=== PATIENT | female | born 1985 | race Caucasian/White ===

== ENCOUNTER 2018-01-13 09:42 | Emergency (ER) | payer OTHER ==
--- NOTE | 2018-01-13 10:10 | EDM.PDOC ---
ED HPI GENERAL MEDICAL PROBLEM - General Chief Complaint: Back Pain or Injury Stated Complaint: BACK PAIN Time Seen by Provider: 01/13/18 10:10 - History of Present Illness INITIAL COMMENTS - FREE TEXT/NARRATIVE: 32-year-old female presents to emergency room with back pain. Patient said this back pain for about 2 weeks. Pain is getting worse she woke up this morning and it was significantly worse. Patient denies really any significant trauma however she's been exercising more than normal. The patient did have an episode this morning where she was down on her knees tried to stand up and drop back down on her knees. This did not make the pain any worse she drop back down to her knees because of the pain. The patient's been using some ibuprofen that has not been helping too much today prior to today's has been helping. Patient has not had any loss of bowel or bladder control no pain down her legs. Patient denies any prior history of back problems. She's had no abdominal pain or tenderness no nausea no vomiting no burning or frequency with urination. Patient does have a history of kidney stones that stay in the kidneys to the best of her knowledge she has never passed a kidney stone. Right Lower Back Pain Score (Numeric/FACES): 8 - Related Data Allergies Allergy/AdvReac Type Severity Reaction Status Date / Time No Known Allergies Allergy Verified 01/13/18 09:49 Home Meds: Home Meds Cyclobenzaprine [Flexeril] 10 mg PO TID #15 tab 01/13/18 [Rx] Past Medical History Genitourinary History: Reports: Renal Calculus Social & Family History - Tobacco Use Smoking Status *Q: Never Smoker - Recreational Drug Use Recreational Drug Use: No ED ROS GENERAL - Review of Systems Review Of Systems: See Below Constitutional: Reports: No Symptoms Respiratory: Reports: No Symptoms Cardiovascular: Reports: No Symptoms GI/Abdominal: Reports: No Symptoms : Reports: No Symptoms Neurological: Reports: No Symptoms ED EXAM,LOWER BACK PAIN/INJURY - Physical Exam Exam: See Below Exam Limited By: No Limitations General Appearance: Alert, No Apparent Distress Head: Atraumatic, Normocephalic Neck: Normal Inspection, Supple, Non-Tender, Full Range of Motion Respiratory/Chest: No Respiratory Distress, Lungs Clear, Normal Breath Sounds Cardiovascular: Regular Rate, Rhythm, No Edema, No Murmur GI/Abdominal: Normal Bowel Sounds, Soft, Non-Tender, Other (She has some obesity otherwise normal exam). No: Distended, Guarding, Rigid, Rebound, Tender Back Exam: Normal Inspection, Paraspinal Tenderness (She has some right-sided paraspinous muscle spasm from the lower thoracic area through the lumbar area and down). No: CVA Tenderness (L), CVA Tenderness (R), Vertebral Tenderness Extremities: Other (Normal distracted straight leg raises normal) Psychiatric: Normal Affect, Normal Mood Course - Vital Signs Last Recorded V/S: Last Vital Signs Temp 36.4 C 01/13/18 09:45 Pulse 80 01/13/18 09:45 Resp 16 01/13/18 09:45 BP 125/76 01/13/18 09:45 Pulse Ox 97 01/13/18 09:45 - Orders/Labs/Meds Labs: Laboratory Tests 01/13/18 01/13/18 Range/Units 08:55 09:55 Urine Color Light yellow (Yellow) Urine Appearance Clear (Clear) Urine pH 7.0 (5.0-8.0) Ur Specific [place]rell 1.015 (1.005-1.030) Urine Protein Negative (Negative) Urine Glucose (UA) Negative (Negative) Urine Ketones Negative (Negative) Urine Occult Blood Negative (Negative) Urine Nitrite Negative (Negative) Urine Bilirubin Negative (Negative) Urine Urobilinogen 0.2 (0.2-1.0) Ur Leukocyte Esterase Negative (Negative) Urine RBC Not seen (0-5) /hpf Urine WBC Not seen (0-5) /hpf Ur Epithelial Cells 0-5 (0-5) /hpf Ur Squamous Epith Cells 0-5 (0-5) /hpf Urine Bacteria Not seen (FEW) /hpf Urine Mucus Not seen (FEW) /hpf Urine HCG, Qual Negative (NEGATIVE) - Re-Assessments/Exams Free Text/Narrative Re-Assessment/Exam: 01/13/18 10:28 Awaiting UA. Anticipate this is a functional low back pain will continue ibuprofen start her on Flexeril. 01/13/18 12:54 Normal urinalysis hCG negative we'll discharge her on Flexeril and Naprosyn Departure - Departure Time of Disposition: 12:55 Disposition: Home, Self-Care 01 Clinical Impression: Lumbosacral strain - Discharge Information Prescriptions: Cyclobenzaprine [Flexeril] 10 mg PO TID #15 tab Instructions: Lumbosacral Strain Referrals: PCP,None [Primary Care Provider] - Forms: ED Department Discharge Additional Instructions: Return to the emergency room with any questions problems worsening symptoms. Follow-up in the Hospital clinic on Sunday or for recheck. [phone]. You been started on 2 medications the first medication is cyclobenzaprine, or Flexeril, this is a muscle relaxant use it 3 times daily today and tomorrow as needed. Then take 1 nightly as needed. Allow 12 hours after using this medication before driving or returning to work. Limit lifting to 20 pounds as practical using proper lifting technique.
== END 2018-01-13 13:14 | disposition home or self-care (01) ==
LOC: JD.ED 09:42
DX: S39.012A Strain of muscle, fascia and tendon of lower back, initial encounter (principal); Z87.442 Personal history of urinary calculi; X58.XXXA Exposure to other specified factors, initial encounter; Y93.B9 Activity, other involving muscle strengthening exercises
CPT/HCPCS: 81001; 81025; 99283

== ENCOUNTER 2019-03-14 07:05 | Inpatient (IN) | payer OTHER ==
[2019-03-14] MEDS ORDERED: Ampicillin 2 GM in Sodium Chloride 0.9% 100 ML IV ONE (07:10)
[2019-03-14] MEDS ORDERED: Nalbuphine 20 MG/ML 1 ML Syringe IVPUSH PRN (07:10)
[2019-03-14] MEDS ORDERED: Sodium Chloride 0.9% 10 ML Syringe FLUSH PRN (07:10)
[2019-03-14] MEDS ORDERED: Ondansetron 4 MG/2 ML SDV IVPUSH PRN (07:10)
[2019-03-14] MEDS ORDERED: Oxytocin/Lactated Ringers 10 UNIT/1,000 ML BAG IV SCH ×2 (07:15)
[2019-03-14] MEDS: Lactated Ringers 1,000 ML IV SCH ×2 (07:41→10:48)
[2019-03-14] MEDS ORDERED: fentaNYL 100 MCG/2 ML SDV EPIDUR PRN (10:26)
[2019-03-14] MEDS ORDERED: diphenhydrAMINE 50 MG/ML SDV IVPUSH PRN (10:26)
[2019-03-14] MEDS ORDERED: ePHEDrine 50 MG/ML SDV IVPUSH PRN (10:26)
[2019-03-14] MEDS ORDERED: fentaNYL/Bupivacaine-NS 2 MCG/ML-0.125%/PF 100 ML Bag EPIDUR PRN (10:26)
--- NOTE | 2019-03-14 10:59 | PCM.PREANE ---
Preanesthetic Assessment - Anesthesia/Transfusion/Family Hx Anesthesia History: Prior Anesthesia Without Reaction Family History of Anesthesia Reaction: No Transfusion History: No Prior Transfusion(s) - Review of Systems General: Fatigue Pulmonary: No Symptoms Cardiovascular: No Symptoms Gastrointestinal: Abdominal Pain (labor) Neurological: No Symptoms Other: Reports: None - Physical Assessment Pulse: 99 O2 Sat by Pulse Oximetry: 97 Respiratory Rate: 16 Blood Pressure: 121/80 Temperature: 36.7 C Vital Signs: Last Vital Signs Temp 36.7 C 03/14/19 07:10 Pulse 99 03/14/19 07:10 Resp 16 03/14/19 07:10 BP 121/80 03/14/19 07:10 Pulse Ox 97 03/14/19 07:10 Height: 1.65 m Weight: 98.157 kg ASA Class: 2 Mental Status: Alert & Oriented x3 Airway Class: Mallampati = 1 Dentition: Reports: Normal Dentition Thyro-Mental Finger Breadths: 3 Mouth Opening Finger Breadths: 3 ROM/Head Extension: Full Lungs: Clear to Auscultation, Normal Respiratory Effort Cardiovascular: Regular Rate, Regular Rhythm - Lab Values: Laboratory Last Values WBC 9.79 K/mm3 (3.98-10.04) 03/14/19 07:26 RBC 4.31 M/mm3 (3.98-5.22) 03/14/19 07:26 Hgb 12.5 gm/L (11.2-15.7) 03/14/19 07:26 Hct 36.8 % (34.1-44.9) 03/14/19 07:26 MCV 85.4 fl (79.4-94.8) 03/14/19 07:26 MCH 29.0 pg (25.6-32.2) 03/14/19 07:26 MCHC 34.0 g/dl (32.2-35.5) 03/14/19 07:26 RDW Std Deviation 43.2 fL (36.4-46.3) 03/14/19 07:26 Plt Count 357 K/mm3 (182-369) 03/14/19 07:26 MPV 8.9 fl (9.4-12.3) L 03/14/19 07:26 Neut % (Auto) 79.4 % (34.0-71.1) H 03/14/19 07:26 Lymph % (Auto) 13.2 % (19.3-51.7) L 03/14/19 07:26 [place] % (Auto) 6.2 % (4.7-12.5) 03/14/19 07:26 Eos % (Auto) 0.5 (0.7-5.8) L 03/14/19 07:26 Baso % (Auto) 0.2 % (0.1-1.2) 03/14/19 07:26 Neut # (Auto) 7.77 K/mm3 (1.56-6.13) H 03/14/19 07:26 Lymph # (Auto) 1.29 K/mm3 (1.18-3.74) 03/14/19 07:26 [place] # (Auto) 0.61 K/mm3 (0.24-0.36) H 03/14/19 07:26 Eos # (Auto) 0.05 K/mm3 (0.04-0.36) 03/14/19 07: Baso # (Auto) 0.02 K/mm3 (0.01-0.08) 03/14/19 07:26 - Allergies Allergies/Adverse Reactions: Allergies Allergy/AdvReac Type Severity Reaction Status Date / Time latex Allergy Rash Verified 03/14/19 07:15 - Anesthesia Plan Pre-Op Medication Ordered: None - Acknowledgements Anesthesia Type Planned: Epidural Pt an Appropriate Candidate for the Planned Anesthesia: Yes Alternatives and Risks of Anesthesia Discussed w Pt/Guardian: Yes Pt/Guardian Understands and Agrees with Anesthesia Plan: Yes PreAnesthesia Questionnaire HEENT History: Reports: Allergic Rhinitis Respiratory History: Reports: Other (See Below) Other Respiratory History: cystic fibrosis carrier Gastrointestinal History: Reports: GERD Genitourinary History: Reports: Renal Calculus 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: , 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 Psychiatric History: Reports: Depression - Past Surgical History HEENT Surgical History: Reports: Oral Surgery Female Surgical History: Reports: D&C, Lithotripsy/ESWL, Other (See Below) Other Female Surgeries/Procedures: D & C 2005 - SUBSTANCE USE Smoking Status *Q: Former Smoker Tobacco Use Within Last Twelve Months: Cigarettes Recreational Drug Use History: No - HOME MEDS Home Medications: Home Meds Famotidine [Pepcid] 10 mg PO BID 03/14/19 [History] Iron 18 mg PO 03/14/19 [History] Vits #93/Iron Fum/FA [ Formula Tablet] 03/14/19 [History] - CURRENT (IN HOUSE) MEDS Current Meds: Current Medications Diphenhydramine HCl (Benadryl) 25 mg IVPUSH Q6H PRN PRN Reason: Itching Ephedrine Sulfate (Ephedrine Sulfate) 5 mg IVPUSH ASDIRECTED PRN PRN Reason: HYPOTENTSION Fentanyl (Sublimaze) 100 mcg EPIDUR Q3H PRN PRN Reason: Pain Last Admin: 03/14/19 10:52 Dose: 100 mcg Fentanyl/Bupivacaine HCl (Rjzrsfwr-Zpsgc-Ti 2 Mcg/Ml-0.125%) 100 ml EPIDUR ASDIRECTED PRN PRN Reason: Pain Last Admin: 03/14/19 10:52 Dose: 100 ml Ampicillin Sodium 1 gm/ Sodium (Chloride) 100 mls @ 200 mls/hr IV Q4H JOHN Lactated Ringer's (Ringers, Lactated) 1,000 mls @ 100 mls/hr IV ASDIRECTED JOHN Last Admin: 03/14/19 10:48 Dose: 100 mls/hr Oxytocin/Lactated Ringer's (Pitocin In Lr 10 Units/1,000 Ml) 10 unit in 1,000 mls @ 500 mls/hr IV .CONTINUOUS JOHN Oxytocin/Lactated Ringer's (Pitocin In Lr 10 Units/1,000 Ml) 10 unit in 1,000 mls @ 12 mls/hr IV TITRATE JOHN; Protocol Last Titration: 03/14/19 10:47 Dose: 8 munits/min, 48 mls/hr Lidocaine HCl (Xylocaine 1%) 10 ml INJECT ONETIME ONE Stop: 03/14/19 15:01 Nalbuphine HCl (Nubain) 10 mg IVPUSH Q2H PRN PRN Reason: pain Ondansetron HCl (Zofran) 4 mg IVPUSH Q4H PRN PRN Reason: Nausea/Vomiting Sodium Chloride (Saline Flush) 10 ml FLUSH ASDIRECTED PRN PRN Reason: Keep Vein Open Discontinued Medications Ampicillin Sodium 2 gm/ Sodium (Chloride) 100 mls @ 200 mls/hr IV ONETIME ONE Stop: 03/14/19 07:39 Last Admin: 03/14/19 07:41 Dose: 200 mls/hr
[2019-03-14] MEDS: Ampicillin 1 GM in Sodium Chloride 0.9% 100 ML IV SCH ×2 (11:29→15:34)
--- NOTE | 2019-03-14 13:01 | PCM.LDHP ---
L&D History of Present Illness - General Date of Service: 03/14/19 Admit Problem/Dx: Patient Status Order with Admit Dx/Problem 03/14/19 07:10 Patient Status [ADT] Routine Admission Diagnosis/Problem Admission Diagnosis/Problem 03/14/19 12:51 39-0/7 week intrauterine admitted for elective induction of labor Source of Information: Patient History Limitations: Reports: No Limitations - History of Present Illness Introduction:: Lindsay is a 33-year-old 3 para 1011 white female at 39-0/7 weeks gestational age with an LANI of 03/21/2019 admitted on the AM of 03/14/2019 for elective induction of labor. The patient's cervix is 2 cm, 60% effaced, soft, - 3 station, mid to posterior position. The procedure of Pitocin/artificial rupture membranes induction of labor is discussed in detail the patient. The risks, benefits, alternatives of care including allowing natural onset of labor all discussed. She appears understand, wishes to proceed. 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 Had one vaginal delivery and 1 induced termination of . Her LMP was 06/14/2019. Her is dated by this LMP but supported by 2 ultrasounds done on 09/02/2018 and 11/25/2018. 13. Cycles every 28 days. Patient was on control time conception. Please delivery includes the followin. Female infant 1 01/08/2017 at 37 weeks gestational age after 15 hours of labor? 6 lbs. 8 oz.?born in [place]. Child's name is Karli. 2. Patient's first ended on 05/15/2006-terminated electively at 8 weeks gestation age course. Patient's first visit was on 09/02/2018 at 11-3/7 weeks gestational age. She was seen on a very regular basis course the . Weight gain was from 195 pounds to 215.4 pounds 420.4 pound weight gain. Vital signs remained stable throughout the course and her fundal height growth was appropriate. She is centering patient. She desired an epidural in labor. Flu shot was given on 08/29/2018. She is group B strep positive and ampicillin will be used prophylactically in L&D. Her depression. Candler test was performed and was negative for trisomy 18, 21, 13. She has a history of kidney stone. Patient is a carrier for cystic fibrosis. She plans to bottlefeed. laboratory testing: Blood is O+ with negative amateur screen. hemoglobin is 13.1 g/dL. Platelets are 424,000. She is rubella immune. RPR is nonreactive. Hepatitis B surface antigen and HIV assays were both negative. Chlamydia and gonorrhea were both negative. Second trimester hemoglobin was 12.0 g/dL and platelets were 352,000. Group B strep screen was positive. Allergies latex which causes a rash Medications: vitamins 1 daily Past medical history: 1. Kidney stones with lithotripsy performed 2012 2. Termination of Past surgical history: 1. Elective termination of 2005 with D&C 2. Lithotripsy 2012 3. Rogers teeth extraction Family history: Patient reports that she has a carrier cystic fibrosis. is negative. Mother is alive and well. Father is alive and well. 2 half sisters are alive and well. Maternal grandfather is . Cause unknown. Maternal grandmother is alive but has history of anemia, depression and some type of skin disorder. Paternal grandfather is alive with skin cancer and prostate cancer. Paternal grandmother is alive at age 78 with depression, stomach issues and has had a history of miscarriages and a stroke. Family history is negative for cancer, presents related issues, bleeding or blood clotting problems. Social history: Patient is . Is Mahendra Moses. They live in [place], [place]. She does not use any significant loss of alcohol or drugs but has a history of smoking. Review of systems: In general patient has no complaints. Skin: Negative Lungs: No infectious symptoms or shortness of breath Cardiovascular: No chest pain or exercise intolerance Breasts: No lumps, changes in size, pain, dimpling, discharge or axillary or supraclavicular concerns. GI: Negative : Negative Musculoskeletal: Negative Neurological: Negative In general the patient is well-developed, well-nourished, pleasant female of stated age in no acute distress. Skin is warm dry without lesions. HEENT, neck and back within normal limits. Lungs are clear with good breath sounds in all lung [place]. Cardiovascular exam shows regular and rhythm without murmurs. Abdomen is gravid with last fundal height and at 39 cm. Baby in vertex presentation Genital exam-cervix is defined above. Extremities and neurological exam are grossly within normal limits. 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: , 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 Psychiatric History: Reports: Depression - Past Surgical History HEENT Surgical History: Reports: Oral Surgery Female Surgical History: Reports: D&C, Lithotripsy/ESWL, Other (See Below) Other Female Surgeries/Procedures: D & C 2005 Social & Family History - Tobacco Use Smoking Status *Q: Former Smoker Used Tobacco, but Quit: Yes Month/Year Tobacco Last Used: 2017 - Recreational Drug Use Recreational Drug Use: No H&P Review of Systems - Review of Systems: Review Of Systems: See Below L&D Exam - Exam Exam: See Below - Vital Signs Vital Signs: Last Vital Signs Temp 36.7 C 03/14/19 10:59 Pulse 99 03/14/19 10:59 Resp 16 03/14/19 10:59 BP 121/80 03/14/19 10:59 Pulse Ox 97 03/14/19 10:59 Weight: 98.157 kg - Patient Data Lab Results Last 24 hrs: Laboratory Results - last 24 hr 03/14/19 Range/Units 07:26 WBC 9.79 (3.98-10.04) K/mm3 RBC 4.31 (3.98-5.22) M/mm3 Hgb 12.5 (11.2-15.7) gm/L Hct 36.8 (34.1-44.9) % MCV 85.4 (79.4-94.8) fl MCH 29.0 (25.6-32.2) pg MCHC 34.0 (32.2-35.5) g/dl RDW Std Deviation 43.2 (36.4-46.3) fL Plt Count 357 (182-369) K/mm3 MPV 8.9 L (9.4-12.3) fl Neut % (Auto) 79.4 H (34.0-71.1) % Lymph % (Auto) 13.2 L (19.3-51.7) % [place] % (Auto) 6.2 (4.7-12.5) % Eos % (Auto) 0.5 L (0.7-5.8) Baso % (Auto) 0.2 (0.1-1.2) % Neut # (Auto) 7.77 H (1.56-6.13) K/mm3 Lymph # (Auto) 1.29 (1.18-3.74) K/mm3 [place] # (Auto) 0.61 H (0.24-0.36) K/mm3 Eos # (Auto) 0.05 (0.04-0.36) K/mm3 Baso # (Auto) 0.02 (0.01-0.08) K/mm3 Result Diagrams: 03/14/19 07:26 Problem List Initiated/Reviewed/Updated: Yes Orders Last 24hrs: Active Orders 24 hr Category Date Time Status Patient Status [ADT] Routine ADT 03/14/19 07:10 Active Activity as Tolerated [RC] PFP Care 03/14/19 07:10 Active Communication Order [RC] ASDIRECTED Care 03/14/19 07:10 Active Communication Order [RC] ROUTINE Care 03/14/19 10:26 Active Cooling Warming Measures [RC] ASDIRECTED Care 03/14/19 10:26 Active Heart Tones [RC] ASDIRECTED Care 03/14/19 07:13 Active Non Stress Test [RC] PER UNIT ROUTINE Care 03/14/19 07:10 Active Notify Provider [RC] ASDIRECTED Care 03/14/19 10:26 Active Notify Provider [RC] PFP Care 03/14/19 07:10 Active Notify Provider [RC] PRN Care 03/14/19 07:10 Active Oxygen Therapy [RC] ASDIRECTED Care 03/14/19 10:26 Active Peripheral IV Care [RC] . DIRECTED Care 03/14/19 07:13 Active Pulse Oximetry [RC] ASDIRECTED Care 03/14/19 10:26 Active Vital Signs [RC] ASDIRECTED Care 03/14/19 10:26 Active Vital Signs [RC] PER UNIT ROUTINE Care 03/14/19 07:10 Active Regular Diet [DIET] Diet 03/14/19 Breakfast Active RAPID PLASMA REAGIN,RPR [CHEM] Routine Lab 03/14/19 07:26 Received Ampicillin 1 gm Med 03/14/19 11:00 Active Sodium Chloride 0.9% [Normal Saline] 100 ml IV Q4H Lactated Ringers [Ringers, Lactated] 1,000 ml Med 03/14/19 07:15 Active IV ASDIRECTED Lidocaine 1% [Xylocaine 1%] Med 03/14/19 15:00 Once 10 ml INJECT ONETIME ONE Nalbuphine [Nubain] Med 03/14/19 07:10 Active 10 mg IVPUSH Q2H PRN Ondansetron [Zofran] Med 03/14/19 07:10 Active 4 mg IVPUSH Q4H PRN Oxytocin/Lactated Ringers [Pitocin in LR 10 Units/1,000 Med 03/14/19 07:15 Active ML] 10 unit in 1,000 ml IV .CONTINUOUS Oxytocin/Lactated Ringers [Pitocin in LR 10 Units/1,000 Med 03/14/19 07:15 Active ML] 10 unit in 1,000 ml IV TITRATE Sodium Chloride 0.9% [Saline Flush] Med 03/14/19 07:10 Active 10 ml FLUSH ASDIRECTED PRN diphenhydrAMINE [Benadryl] Med 03/14/19 10:26 Active 25 mg IVPUSH Q6H PRN ePHEDrine [ePHEDrine sulfate] Med 03/14/19 10:26 Active 5 mg IVPUSH ASDIRECTED PRN fentaNYL [Sublimaze] Med 03/14/19 10:26 Active 100 mcg EPIDUR Q3H PRN fentaNYL/Bupivacaine/NS/PF [cjycyQAI-Defsn-CK 2 MCG/ML- Med 03/14/19 10:26 Active 0.125%] 100 ml EPIDUR ASDIRECTED PRN Electronic Heart Tones Ext w TOCO [WOMSER] Oth 03/14/19 07:10 Ordered Routine Electronic Heart Tones Internal [WOMSER] Per Unit Oth 03/14/19 07:10 Ordered Routine Peripheral IV Insertion Adult [OM.PC] Routine Oth 03/14/19 07:10 Ordered Resuscitation Status Routine Resus Stat 03/14/19 07:10 Ordered Medication Orders Diphenhydramine HCl (Benadryl) 25 mg IVPUSH Q6H PRN PRN Reason: Itching Ephedrine Sulfate (Ephedrine Sulfate) 5 mg IVPUSH ASDIRECTED PRN PRN Reason: HYPOTENTSION Fentanyl (Sublimaze) 100 mcg EPIDUR Q3H PRN PRN Reason: Pain Last Admin: 03/14/19 10:52 Dose: 100 mcg Fentanyl/Bupivacaine HCl (Wvbowqqg-Wpwcm-Um 2 Mcg/Ml-0.125%) 100 ml EPIDUR ASDIRECTED PRN PRN Reason: Pain Last Admin: 03/14/19 10:52 Dose: 100 ml Ampicillin Sodium 1 gm/ Sodium (Chloride) 100 mls @ 200 mls/hr IV Q4H JOHN Last Admin: 03/14/19 11:29 Dose: 200 mls/hr Lactated Ringer's (Ringers, Lactated) 1,000 mls @ 100 mls/hr IV ASDIRECTED JOHN Last Admin: 03/14/19 10:48 Dose: 100 mls/hr Infusion: 03/14/19 10:48 Dose: 100 mls/hr Admin: 03/14/19 07:41 Dose: 100 mls/hr Oxytocin/Lactated Ringer's (Pitocin In Lr 10 Units/1,000 Ml) 10 unit in 1,000 mls @ 500 mls/hr IV .CONTINUOUS JOHN Oxytocin/Lactated Ringer's (Pitocin In Lr 10 Units/1,000 Ml) 10 unit in 1,000 mls @ 12 mls/hr IV TITRATE JOHN; Protocol Last Titration: 03/14/19 11:26 Dose: 6 munits/min, 36 mls/hr Titration: 03/14/19 10:47 Dose: 8 munits/min, 48 mls/hr Titration: 03/14/19 10:21 Dose: 9 munits/min, 54 mls/hr Titration: 03/14/19 09:28 Dose: 8 munits/min, 48 mls/hr Titration: 03/14/19 09:02 Dose: 6 munits/min, 36 mls/hr Titration: 03/14/19 08:36 Dose: 4 munits/min, 24 mls/hr Admin: 03/14/19 07:54 Dose: 2 munits/min, 12 mls/hr Lidocaine HCl (Xylocaine 1%) 10 ml INJECT ONETIME ONE Stop: 03/14/19 15:01 Nalbuphine HCl (Nubain) 10 mg IVPUSH Q2H PRN PRN Reason: pain Ondansetron HCl (Zofran) 4 mg IVPUSH Q4H PRN PRN Reason: Nausea/Vomiting Sodium Chloride (Saline Flush) 10 ml FLUSH ASDIRECTED PRN PRN Reason: Keep Vein Open Assessment/Plan Comment:: 1. 39-0/7 week intrauterine admitted for elective induction of labor 2. Group B strep positive status?candidate for ampicillin prophylaxis in labor delivery 3. Desiring epidural labor delivery 4.The patient plans to bottlefeed. 5. RPR is nonreactive. Patient has had her flu shot. Plan: 1. Pitocin/artificial rupture membranes induction of labor. Procedure, risks, benefits, alternative care discussed patient. She appears to understand and wishes to proceed 2. Epidural when necessary for pain in labor. 3. Ampicillin prophylaxis for group B strep per protocol 4. Bottle feeding. 5. RPR and CBC on admission to the hospital. ]
--- NOTE | 2019-03-14 14:07 | PCM.SN ---
- Free Text/Narrative Note: 1350 called to room to reattach epidural tubing to patient. Using sterile technique and sterile scissors, cut tubing back 5 inches and reattached to epidural line. Education provided to patient. Out of room at 1401
[2019-03-14] MEDS ORDERED: Lidocaine 1% 50 ML MDV INJECT ONE (15:00)
[2019-03-14] MEDS ORDERED: Acetaminophen 325 MG Tab PO PRN (15:34)
[2019-03-14] MEDS ORDERED: Lanolin 100% Cream 7 GM Tube TOP PRN (15:34)
[2019-03-14] MEDS ORDERED: Docusate Sodium 100 MG Cap PO PRN (15:34)
[2019-03-14] MEDS ORDERED: Benzocaine/Menthol 20%-0.5% Spray 56 GM Canister TOP PRN (15:34)
[2019-03-14] MEDS ORDERED: Witch Hazel Medicated Pads 40/Jar TOP PRN (15:34)
--- NOTE | 2019-03-14 15:37 | PCM.SN ---
- Free Text/Narrative Note: Lindsay is a 33-year-old 3 para 1011 white female at 39-0/7 weeks gestational age with an LANI of 03/21/2019 admitted on the AM of 03/14/2019 for elective induction of labor. The patient's cervix was 2 cm, 60% effaced, soft, - 3 station, mid to posterior position. The procedure of Pitocin/artificial rupture membranes induction of labor is discussed in detail the patient. The risks, benefits, alternatives of care including allowing natural onset of labor all discussed. She appears understand, wishes to proceed. After short period of Pitocin and menstruation artificial rupture membranes was completed with resultant clear amniotic fluid. IUPC was placed monitor contractions more accurately. Patient had an epidural placed for labor and analgesia. Patient made steady progress to complete cervical dilation by approximately 1450 hrs. At 1503 patient delivered a viable, beatty, female with Apgars of 9 and 9,A length of 20.25 inches, a weight of 3410 g (7 pounds 8.3 ounces) in a right occiput anterior position. She had a 8 cm long left labia majora laceration which was superficial in nature. No bleeding or hematomas were noted. Pitocin was started immediately after delivery the baby to facilitate increased uterine tone and decrease bleeding. Baby was placed on mom's abdomen. The umbilical cord was long pulsate for approximately 2 minutes at which time was clamped and then was cut by the baby's father Lawrence. Baby's name is Mu Torres. The baby was dried, nose and mouth were bulb suctioned. Umbilical cord had 3 vessels. Cord blood was obtained. The area of laceration was infiltrated with lidocaine 1 %10 mL total. Using a 3-0 Monocryl suture the area was closed with a running subcuticular stitch. The first-degree perineal laceration and outer and introital laceration were repaired with a short running suture of 3-0 Monocryl. Patient tolerated the procedure well. Placenta delivered in a [place] presentation,. Intact and complete and was discarded per patient desire. Speculum was placed on the patient's perineal area. Assessment blood loss 100 mL.
[2019-03-14] MEDS: Ibuprofen 600 MG Tab PO PRN (18:15)
[2019-03-14] MEDS ORDERED: Bupivacaine 0.25% 10 ML SDV ONE (22:00)
[2019-03-15] MEDS: Ibuprofen 600 MG Tab PO PRN ×5 (01:50→23:45)
--- NOTE | 2019-03-15 07:08 | PCM.PNPP ---
- General Info Date of Service: 03/15/19 Subjective Update: Doing well. day 1. Baby under bili lights. Functional Status: Reports: Pain Controlled - Review of Systems General: Reports: No Symptoms HEENT: Reports: No Symptoms Pulmonary: Reports: No Symptoms Cardiovascular: Reports: No Symptoms Gastrointestinal: Reports: No Symptoms Genitourinary: Reports: No Symptoms Musculoskeletal: Reports: No Symptoms Skin: Reports: No Symptoms Neurological: Reports: No Symptoms Psychiatric: Reports: No Symptoms - General Info Date of Service: 03/15/19 - Patient Data Vital Signs - Most Recent: Last Vital Signs Temp 37.0 C 03/14/19 19:47 Pulse 72 03/15/19 02:19 Resp 14 03/15/19 02:19 BP 127/74 03/15/19 02:19 Pulse Ox 97 03/15/19 02:19 Weight - Most Recent: 98.157 kg I&O - Last 24 Hours: Intake & Output 03/14/19 03/15/19 03/15/19 22:59 06:59 14:59 Intake Total 1800 Balance 1800 Lab Results - Last 24 Hours: Laboratory Results - last 24 hr 03/14/19 03/14/19 Range/Units 07:26 07:26 WBC 9.79 (3.98-10.04) K/mm3 RBC 4.31 (3.98-5.22) M/mm3 Hgb 12.5 (11.2-15.7) gm/L Hct 36.8 (34.1-44.9) % MCV 85.4 (79.4-94.8) fl MCH 29.0 (25.6-32.2) pg MCHC 34.0 (32.2-35.5) g/dl RDW Std Deviation 43.2 (36.4-46.3) fL Plt Count 357 (182-369) K/mm3 MPV 8.9 L (9.4-12.3) fl Neut % (Auto) 79.4 H (34.0-71.1) % Lymph % (Auto) 13.2 L (19.3-51.7) % [place] % (Auto) 6.2 (4.7-12.5) % Eos % (Auto) 0.5 L (0.7-5.8) Baso % (Auto) 0.2 (0.1-1.2) % Neut # (Auto) 7.77 H (1.56-6.13) K/mm3 Lymph # (Auto) 1.29 (1.18-3.74) K/mm3 [place] # (Auto) 0.61 H (0.24-0.36) K/mm3 Eos # (Auto) 0.05 (0.04-0.36) K/mm3 Baso # (Auto) 0.02 (0.01-0.08) K/mm3 RPR Non-reactive (NONREACTIVE) Med Orders - Current: Current Medications Acetaminophen (Tylenol) 650 mg PO Q4H PRN PRN Reason: mild pain or fever Benzocaine/Menthol (Dermoplast Pain Relief [place]) 0 gm TOP ASDIRECTED PRN PRN Reason: Perineal Comfort Measure Last Admin: 03/14/19 16:10 Dose: 1 applic Docusate Sodium (Colace) 100 mg PO BID PRN PRN Reason: Constipation Emollient Ointment (Lansinoh Hpa) 0 gm TOP ASDIRECTED PRN PRN Reason: Sore Nipples Ibuprofen (Motrin) 600 mg PO Q4H PRN PRN Reason: Mild pain or fever Last Admin: 03/15/19 05:34 Dose: 600 mg Prenat Multivit/[place]/Iron/Folic Ac ( Plus Iron) 1 each PO DAILY [facility] [place] (Tucks) 1 pad TOP ASDIRECTED PRN PRN Reason: Pain Last Admin: 03/14/19 16:09 Dose: 1 applic Discontinued Medications Diphenhydramine HCl (Benadryl) 25 mg IVPUSH Q6H PRN PRN Reason: Itching Ephedrine Sulfate (Ephedrine Sulfate) 5 mg IVPUSH ASDIRECTED PRN PRN Reason: HYPOTENTSION Fentanyl (Sublimaze) 100 mcg EPIDUR Q3H PRN PRN Reason: Pain Last Admin: 03/14/19 10:52 Dose: 100 mcg Fentanyl/Bupivacaine HCl (Ryjpkadk-Omvtx-Wo 2 Mcg/Ml-0.125%) 100 ml EPIDUR ASDIRECTED PRN PRN Reason: Pain Last Admin: 03/14/19 10:52 Dose: 100 ml Ampicillin Sodium 1 gm/ Sodium (Chloride) 100 mls @ 200 mls/hr IV Q4H [facility] Last Admin: 03/14/19 15:34 Dose: Not Given Ampicillin Sodium 2 gm/ Sodium (Chloride) 100 mls @ 200 mls/hr IV ONETIME ONE Stop: 03/14/19 07:39 Last Admin: 03/14/19 07:41 Dose: 200 mls/hr Lactated Ringer's (Ringers, Lactated) 1,000 mls @ 100 mls/hr IV ASDIRECTED JOHN Last Admin: 03/14/19 10:48 Dose: 100 mls/hr Oxytocin/Lactated Ringer's (Pitocin In Lr 10 Units/1,000 Ml) 10 unit in 1,000 mls @ 500 mls/hr IV .CONTINUOUS JOHN Oxytocin/Lactated Ringer's (Pitocin In Lr 10 Units/1,000 Ml) 10 unit in 1,000 mls @ 12 mls/hr IV TITRATE JOHN; Protocol Last Titration: 03/14/19 15:04 Dose: 500 mls/hr Lidocaine HCl (Xylocaine 1%) 10 ml INJECT ONETIME ONE Stop: 03/14/19 15:01 Last Admin: 03/14/19 15:09 Dose: 10 ml Nalbuphine HCl (Nubain) 10 mg IVPUSH Q2H PRN PRN Reason: pain Ondansetron HCl (Zofran) 4 mg IVPUSH Q4H PRN PRN Reason: Nausea/Vomiting Sodium Chloride (Saline Flush) 10 ml FLUSH ASDIRECTED PRN PRN Reason: Keep Vein Open - Infant Interaction Support Person: - Recovery Exam Fundal Tone: Firm Fundal Level: At Umbilicus Fundal Placement: Midline Lochia Amount: Small Lochia Color: Rubra/Red Episiotomy/Laceration: Approximated Bladder Status: Voiding Urinary Elimination: Voided - Exam General: Alert, Oriented HEENT: Pupils Equal Neck: Supple Lungs: Clear to Auscultation, Normal Respiratory Effort Cardiovascular: Regular Rate, Regular Rhythm GI/Abdominal Exam: Normal Bowel Sounds, Soft, Non-Tender, No Organomegaly, No Distention, No Abnormal Bruit, No Mass, Pelvis Stable Extremities: Normal Inspection, Normal Range of Motion, Non-Tender, No Pedal Edema, Normal Capillary Refill Neurological: No New Focal Deficit Psy/Mental Status: Alert, Normal Affect, Normal Mood - Problem List Review Problem List Initiated/Reviewed/Updated: Yes - Assessment Assessment:: Doing well. Likely home tomorrow.
[2019-03-15] MEDS ORDERED: Prenatal Multivitamin with Calcium/Folic Acid/Iron Tab PO SCH (09:00)
--- NOTE | 2019-03-16 07:02 | PCM.DCSUM1 ---
Discharge Summary - Hospital Course Brief History: Admitted for labor Diagnosis: Stroke: No - Discharge Data Discharge Date: 03/16/19 Discharge Disposition: Home, Self-Care 01 Condition: Good - Patient Summary/Data Hospital Course: Lindsay is a 33-year-old 3 para 1011 white female at 39-0/7 weeks gestational age with an LANI of 03/21/2019 admitted on the AM of 03/14/2019 for elective induction of labor. The patient's cervix was 2 cm, 60% effaced, soft, - 3 station, mid to posterior position. The procedure of Pitocin/artificial rupture membranes induction of labor is discussed in detail the patient. The risks, benefits, alternatives of care including allowing natural onset of labor all discussed. She appears understand, wishes to proceed. After short period of Pitocin and menstruation artificial rupture membranes was completed with resultant clear amniotic fluid. IUPC was placed monitor contractions more accurately. Patient had an epidural placed for labor and analgesia. Patient made steady progress to complete cervical dilation by approximately 1450 hrs. At 1503 patient delivered a viable, beatty, female with Apgars of 9 and 9,A length of 20.25 inches, a weight of 3410 g (7 pounds 8.3 ounces) in a right occiput anterior position. She had a 8 cm long left labia majora laceration which was superficial in nature. No bleeding or hematomas were noted. Pitocin was started immediately after delivery the baby to facilitate increased uterine tone and decrease bleeding. Baby was placed on mom's abdomen. The umbilical cord was long pulsate for approximately 2 minutes at which time was clamped and then was cut by the baby's father Lawrence. Baby's name is Mu Torres. The baby was dried, nose and mouth were bulb suctioned. Umbilical cord had 3 vessels. Cord blood was obtained. The area of laceration was infiltrated with lidocaine 1 %10 mL total. Using a 3-0 Monocryl suture the area was closed with a running subcuticular stitch. The first-degree perineal laceration and outer and introital laceration were repaired with a short running suture of 3-0 Monocryl. Patient tolerated the procedure well. Placenta delivered in a [place] presentation,. Intact and complete and was discarded per patient desire. Speculum was placed on the patient's perineal area. Assessment blood loss 100 mL Unremarkable course. Discharge ppd2 - Patient Instructions Diet: Usual Diet as Tolerated Activity: No Lifting Over 25 Pounds, No Strenuous Activities Activity, Other: pelvic rest Driving: May Drive Today Showering/Bathing: May Shower Notify Provider of: Fever, Increased Pain, Swelling and Redness, Drainage, Nausea and/or Vomiting - Discharge Plan *PRESCRIPTION DRUG MONITORING PROGRAM REVIEWED*: Not Applicable *COPY OF PRESCRIPTION DRUG MONITORING REPORT IN PATIENT BRITTANY: Not Applicable Home Medications: Home Meds Famotidine [Pepcid] 10 mg PO BID 03/14/19 [History] Iron 18 mg PO 03/14/19 [History] Vits #93/Iron Fum/FA [ Formula Tablet] 03/14/19 [History] Referrals: Norris Mendez MD [Primary Care Provider] - (2 weeks) - Discharge Summary/Plan Comment DC Time >30 min.: No - General Info Date of Service: 03/16/19 Functional Status: Reports: Pain Controlled - Review of Systems General: Reports: No Symptoms HEENT: Reports: No Symptoms Pulmonary: Reports: No Symptoms Cardiovascular: Reports: No Symptoms Gastrointestinal: Reports: No Symptoms Genitourinary: Reports: No Symptoms Musculoskeletal: Reports: No Symptoms Skin: Reports: No Symptoms Neurological: Reports: No Symptoms Psychiatric: Reports: No Symptoms - Patient Data Vitals - Most Recent: Last Vital Signs Temp 36.4 C 03/16/19 03:58 Pulse 73 03/16/19 03:58 Resp 14 03/16/19 03:58 BP 125/75 03/16/19 03:58 Pulse Ox 98 03/16/19 03:58 Weight - Most Recent: 98.157 kg I&O - Last 24 hours: Intake & Output 03/15/19 03/16/19 03/16/19 22:59 06:59 14:59 Intake Total 0 Balance 0 Med Orders - Current: Current Medications Acetaminophen (Tylenol) 650 mg PO Q4H PRN PRN Reason: mild pain or fever Benzocaine/Menthol (Dermoplast Pain Relief [place]) 0 gm TOP ASDIRECTED PRN PRN Reason: Perineal Comfort Measure Last Admin: 03/14/19 16:10 Dose: 1 applic Docusate Sodium (Colace) 100 mg PO BID PRN PRN Reason: Constipation Emollient Ointment (Lansinoh Hpa) 0 gm TOP ASDIRECTED PRN PRN Reason: Sore Nipples Ibuprofen (Motrin) 600 mg PO Q4H PRN PRN Reason: Mild pain or fever Last Admin: 03/15/19 23:45 Dose: 600 mg Prenat Multivit/[place]/Iron/Folic Ac ( Plus Iron) 1 each PO DAILY JOHN Last Admin: 03/15/19 08:49 Dose: Not Given [place] (Tucks) 1 pad TOP ASDIRECTED PRN PRN Reason: Pain Last Admin: 03/14/19 16:09 Dose: 1 applic Discontinued Medications Diphenhydramine HCl (Benadryl) 25 mg IVPUSH Q6H PRN PRN Reason: Itching Ephedrine Sulfate (Ephedrine Sulfate) 5 mg IVPUSH ASDIRECTED PRN PRN Reason: HYPOTENTSION Fentanyl (Sublimaze) 100 mcg EPIDUR Q3H PRN PRN Reason: Pain Last Admin: 03/14/19 10:52 Dose: 100 mcg Fentanyl/Bupivacaine HCl (Xwmwhzyt-[place]-Kr 2 Mcg/Ml-0.125%) 100 ml EPIDUR ASDIRECTED PRN PRN Reason: Pain Last Admin: 03/14/19 10:52 Dose: 100 ml Ampicillin Sodium 1 gm/ Sodium (Chloride) 100 mls @ 200 mls/hr IV Q4H JOHN Last Admin: 03/14/19 15:34 Dose: Not Given Ampicillin Sodium 2 gm/ Sodium (Chloride) 100 mls @ 200 mls/hr IV ONETIME ONE Stop: 03/14/19 07:39 Last Admin: 03/14/19 07:41 Dose: 200 mls/hr Lactated Ringer's (Ringers, Lactated) 1,000 mls @ 100 mls/hr IV ASDIRECTED JOHN Last Admin: 03/14/19 10:48 Dose: 100 mls/hr Oxytocin/Lactated Ringer's (Pitocin In Lr 10 Units/1,000 Ml) 10 unit in 1,000 mls @ 500 mls/hr IV .CONTINUOUS JOHN Oxytocin/Lactated Ringer's (Pitocin In Lr 10 Units/1,000 Ml) 10 unit in 1,000 mls @ 12 mls/hr IV TITRATE JOHN; Protocol Last Titration: 03/14/19 15:04 Dose: 500 mls/hr Lidocaine HCl (Xylocaine 1%) 10 ml INJECT ONETIME ONE Stop: 03/14/19 15:01 Last Admin: 03/14/19 15:09 Dose: 10 ml Nalbuphine HCl (Nubain) 10 mg IVPUSH Q2H PRN PRN Reason: pain Ondansetron HCl (Zofran) 4 mg IVPUSH Q4H PRN PRN Reason: Nausea/Vomiting Sodium Chloride (Saline Flush) 10 ml FLUSH ASDIRECTED PRN PRN Reason: Keep Vein Open
[2019-03-16] MEDS: Ibuprofen 600 MG Tab PO PRN (08:33)
--- NOTE | 2019-03-17 07:21 | PCM48HPAN ---
Post Anesthesia Note - EVALUATION WITHIN 48HRS OF ANESTHETIC Vital Signs in Normal Range: Yes Patient Participated in Evaluation: No (per RN) Respiratory Function Stable: Yes Airway Patent: Yes Cardiovascular Function Stable: Yes Hydration Status Stable: Yes Pain Control Satisfactory: Yes Nausea and Vomiting Control Satisfactory: Yes Mental Status Recovered: Yes - COMMENTS/OBSERVATIONS Free Text/Narrative:: no anesthesia complications noted
== END 2019-03-16 08:45 | disposition home or self-care (01) | DRG 807 ==
LOC: JD.OB 07:05 → OBSVTOIN 15:03 → JD.OB 15:03 → EDSTATUS 03-21 07:02
PROVIDERS: ADMIT Obstetrics & Gynecology; ATTEND Obstetrics & Gynecology
PROC: 3E033VJ Introduction of Other Hormone into Peripheral Vein, Percutaneous Approach (ICD-10-PCS; principal; 2019-03-14)
PROC: 0UQMXZZ Repair Vulva, External Approach (ICD-10-PCS; principal; 2019-03-14)
PROC: 10E0XZZ Delivery of Products of Conception, External Approach (ICD-10-PCS; principal; 2019-03-14)
PROC: 10H07YZ Insertion of Other Device into Products of Conception, Via Natural or Artificial Opening (ICD-10-PCS; principal; 2019-03-14)
PROC: 6A550ZT Pheresis of Cord Blood Stem Cells, Single (ICD-10-PCS; principal; 2019-03-14)
PROC: 10907ZC Drainage of Amniotic Fluid, Therapeutic from Products of Conception, Via Natural or Artificial Opening (ICD-10-PCS; principal; 2019-03-14)
PROC: 3E0R3BZ Introduction of Anesthetic Agent into Spinal Canal, Percutaneous Approach (ICD-10-PCS; 2019-03-14)
PROC: 00HU33Z Insertion of Infusion Device into Spinal Canal, Percutaneous Approach (ICD-10-PCS; 2019-03-14)
DX: O99.824 Streptococcus B carrier state complicating childbirth (principal); Z37.0 Single live birth; O70.0 First degree perineal laceration during delivery; Z3A.39 39 weeks gestation of pregnancy; O99.344 Other mental disorders complicating childbirth; F32.9 Major depressive disorder, single episode, unspecified; O99.62 Diseases of the digestive system complicating childbirth; K21.9 Gastro-esophageal reflux disease without esophagitis; Z87.891 Personal history of nicotine dependence; Z87.442 Personal history of urinary calculi; Z91.040 Latex allergy status
CPT/HCPCS: 36415; 51702; 59025; 59409; 85025; 86592; A9270-GY; J0290; J2001; J2590; J3010; J3490; J7030; J7120

== ENCOUNTER 2020-12-21 20:28 | Emergency (ER) | payer BC, OTHER ==
[2020-12-21] MEDS ORDERED: LORazepam 1 MG Tab PO ONE (21:00)
--- NOTE | 2020-12-21 21:05 | EDM.PDOC ---
ED HPI GENERAL MEDICAL PROBLEM - General Chief Complaint: General Stated Complaint: ANNA DOBSON Time Seen by Provider: 12/21/20 20:52 Source of Information: Reports: Patient, RN Notes Reviewed History Limitations: Reports: No Limitations - History of Present Illness INITIAL COMMENTS - FREE TEXT/NARRATIVE: Patient is a 35-year-old female presenting to the ED today for her complaints of high blood pressure and generalized feelings of being unwell. Patient notes that on and off for the past 2 weeks, she has had instances of just not feeling right, she took her blood pressure tonight, this revealed a blood pressure of 201/130 at home, was 220/111 at time of triage and has subsequently come down to 176 systolically while resting in the ER. Patient has no history of hyperten cathy, takes no other regular medications. Patient notes that this episode come on all of a sudden tonight after waking up. She felt shaky, so she took her blood pressure and found to be elevated. She does have a history of anxiety attacks to take no other medications for anxiety. She recently schedule an appointment with Dr. Terry for the beginning of January to be evaluated. She notes due to the prolonged wait time, she was concerned about her blood pressure so she decided to come to the ER to get checked over. She has not had any recent illness, she has had no fevers or chills, cough/shortness of breath, nausea/vomiting/diarrhea. She is not complaining of any dizziness, lightheadedness, headache, or any other neurological type symptoms. 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 ED EXAM, GENERAL - Physical Exam Exam: See Below Exam Limited By: No Limitations General Appearance: Alert, WD/WN, No Apparent Distress Respiratory/Chest: No Respiratory Distress, Lungs Clear, Normal Breath Sounds, No Accessory Muscle Use, Chest Non-Tender Cardiovascular: Normal Peripheral Pulses, Regular Rate, Rhythm, No Edema Peripheral Pulses: 2+: Radial (L), Radial (R) Extremities: Normal Inspection, Normal Capillary Refill Neurological: Alert, Oriented, Normal Cognition, No Motor/Sensory Deficits Psychiatric: Anxious (slightly anxious) Skin Exam: Warm, Dry, Intact, Normal Color, No Rash Course - Vital Signs Last Recorded V/S: Last Vital Signs Temp 97.5 F 12/21/20 20:40 Pulse 126 H 12/21/20 20:40 Resp 16 12/21/20 20:40 BP 220/111 H 12/21/20 20:40 Pulse Ox 97 12/21/20 20:40 - Orders/Labs/Meds Labs: Laboratory Tests 12/21/20 12/21/20 12/21/20 Range/Units 21:02 21:02 21:02 WBC 10.16 H (3.98-10.04) K/mm3 RBC 4.26 (3.98-5.22) M/mm3 Hgb 13.1 (11.2-15.7) gm/dl Hct 40.1 (34.1-44.9) % MCV 94.1 D (79.4-94.8) fl MCH 30.8 (25.6-32.2) pg MCHC 32.7 (32.2-35.5) g/dl RDW Std Deviation 43.8 (36.4-46.3) fL Plt Count 398 H (182-369) K/mm3 MPV 8.9 L (9.4-12.3) fl Neut % (Auto) 71.2 H (34.0-71.1) % Lymph % (Auto) 18.1 L (19.3-51.7) % [place] % (Auto) 8.3 (4.7-12.5) % Eos % (Auto) 1.7 (0.7-5.8) Baso % (Auto) 0.5 (0.1-1.2) % Neut # (Auto) 7.24 H (1.56-6.13) K/mm3 Lymph # (Auto) 1.84 (1.18-3.74) K/mm3 [place] # (Auto) 0.84 H (0.24-0.36) K/mm3 Eos # (Auto) 0.17 (0.04-0.36) K/mm3 Baso # (Auto) 0.05 (0.01-0.08) K/mm3 Manual Slide Review Normal smear Sodium 138 (136-145) mEq/L Potassium 3.5 (3.5-5.1) mEq/L Chloride 100 (98-107) mEq/L Carbon Dioxide 21 (21-32) mEq/L Anion Gap 20.5 H (5-15) BUN 10 (7-18) mg/dL Creatinine 0.8 (0.55-1.02) mg/dL Est Cr Clr Drug Dosing 88.32 mL/min Estimated GFR (MDRD) > 60 (>60) mL/min BUN/Creatinine Ratio 12.5 L (14-18) Glucose 86 (74-106) mg/dL Calcium 9.6 (8.5-10.1) mg/dL Magnesium 1.9 (1.8-2.4) mg/dl Total Bilirubin 0.5 (0.2-1.0) mg/dL AST 36 (15-37) U/L ALT 35 (14-59) U/L Alkaline Phosphatase 52 (46-116) U/L Total Protein 7.8 (6.4-8.2) g/dl Albumin 3.6 (3.4-5.0) g/dl Globulin 4.2 gm/dL Albumin/Globulin Ratio 0.9 L (1-2) TSH 3rd Generation 3.687 (0.358-3.74) uIU/mL Meds: Medications Discontinued Medications Generic Name Dose Route Start Last Admin Trade Name Freq PRN Reason Stop Dose Admin Lorazepam 1 mg 12/21/20 21:00 12/21/20 21:07 Ativan PO 12/21/20 21:01 1 mg ONETIME ONE Administration - Re-Assessments/Exams Free Text/Narrative Re-Assessment/Exam: 12/21/20 21:03 Patient presents to the ED for evaluation of her elevated blood pressure, and feelings of being shaky. Highly suspect this might be due to anxiety, however since she has not been evaluated for this before and with some elevated blood pressure readings at home, we will go ahead and check some basic labs to include a CBC, CMP, magnesium level and a thyroid level for further evaluation. Patient will be given 1 mg p.o. Ativan for ongoing management to see if this helps her anxiety. Plan is to send her home with a few tablets of Ativan if this seems to help and have her follow-up with Dr. Terry after keeping a blood pressure journal, if all of her laboratory evaluation seems to be in check. 12/21/20 21:39 Laboratory evaluation essentially has resulted, still waiting on the TSH. No major abnormalities are appreciated at today's visit. 12/21/20 21:58 TSH is within normal limits blood pressure is down to 156/105, we will go ahead and discharge the patient with conservative recommendations and have her follow- up with [facility] few weeks when she is scheduled for appointment. Departure - Departure Time of Disposition: 21:59 Disposition: Home, Self-Care 01 Condition: Good Clinical Impression: Elevated blood pressure reading, Anxiety - Discharge Information *PRESCRIPTION DRUG MONITORING PROGRAM REVIEWED*: Yes *COPY OF PRESCRIPTION DRUG MONITORING REPORT IN PATIENT BRITTANY: No Prescriptions: LORazepam [Ativan] 1 mg PO TID PRN #12 tab PRN Reason: Anxiety Instructions: Managing Anxiety, Adult, Managing Your Hypertension Referrals: PCP,None [Ordering Only Provider] - Forms: ED Department Discharge Additional Instructions: You were seen in this ER for your elevated blood pressure readings, and feelings of anxiety. Laboratory evaluation demonstrated no focal abnormalities that would be the cause of your symptoms at today's visit. People's blood pressure readings spike throughout the day, and with physiologic stress, etc. Recommend that when you are checking your blood pressure that you do so when you are in a calm restful state for about 5 minutes, and then check your blood pressure, record this level in a journal, and discuss this with your primary care provider when you go for your appointment in January. Recommend you do blood pressure checks at least twice a day, and record these values in a journal as stated above. You were given a prescription for Ativan, this is for generalized anxiety, you may take 1 tablet 3 times a day as needed if necessary, or just at the onset of anxiety type feelings. Please return to the ER at any time if your symptoms should change or worsen. Sepsis Event Note (ED) - Evaluation Sepsis Screening Result: No Definite Risk - Focused Exam Vital Signs: Vital Signs Temp Pulse Resp BP Pulse Ox 12/21/20 20:40 97.5 F 126 H 16 220/111 H 97
== END 2020-12-21 22:08 | disposition home or self-care (01) ==
LOC: JD.ED 20:28
DX: R03.0 Elevated blood-pressure reading, without diagnosis of hypertension (principal); F41.9 Anxiety disorder, unspecified; Z91.040 Latex allergy status
CPT/HCPCS: 36415; 80053; 83735; 84443; 85025; 99283; A9270; 99284

== ENCOUNTER 2021-08-20 08:57 | Emergency (ER) | payer SELFPAY ==
--- NOTE | 2021-08-20 09:19 | EDM.PDOC ---
ED HPI GENERAL MEDICAL PROBLEM - General Chief Complaint: Abdominal Pain Stated Complaint: ABDOMINAL PAIN Time Seen by Provider: 08/20/21 09:18 - History of Present Illness INITIAL COMMENTS - FREE TEXT/NARRATIVE: 36-year-old female presents the emergency room with abdominal pain. Patient states his pain started around 4:00 this morning it woke her up. It is right upper quadrant pain and to a lesser degree in the epigastric area. She has not had associated nausea and vomiting with this. She has not had any fevers or chills she has had some nausea but no vomiting. Patient still has her gallbladder and her appendix. She denies any possibility of being . She is a 3 para 2 1 . The patient has not had pain like this in the past. She states she has some intermittent heartburn but none recently. 13:20 after working this up to some degree in and it appears she is developing some degree of pancreatitis with a lipemic state. Further discussion with the patient reveals that the patient's been drinking on a regular basis 1 bottle of wine nightly stopped 2 days ago but this is been going on for over a year Abdominal Pain Score (Numeric/FACES): 6 - Related Data Allergies Allergy/AdvReac Type Severity Reaction Status Date / Time latex Allergy Rash Verified 08/20/21 09:06 Home Meds: Home Meds LORazepam [Ativan] 1 mg PO TID PRN #12 tab 12/21/20 [Rx] Past Medical History HEENT History: Reports: Allergic Rhinitis Respiratory History: Reports: Other (See Below) Other Respiratory History: cystic fibrosis carrier Gastrointestinal History: Reports: GERD Genitourinary History: Reports: Renal Calculus 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: , 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 Psychiatric History: Reports: Anxiety, Depression - Past Surgical History HEENT Surgical History: Reports: Oral Surgery Female Surgical History: Reports: D&C, Lithotripsy/ESWL, Other (See Below) Other Female Surgeries/Procedures: D & C 2005 Social & Family History - Tobacco Use Tobacco Use Status *Q: Never Tobacco User Second Hand Smoke Exposure: No - Caffeine Use Caffeine Use: Reports: None - Alcohol Use Days Per Week of Alcohol Use: 3 Number of Drinks Per Day: 3 Total Drinks Per Week: 9 - Recreational Drug Use Recreational Drug Use: No ED ROS GENERAL - Review of Systems Review Of Systems: See Below Constitutional: Reports: No Symptoms HEENT: Reports: No Symptoms Respiratory: Reports: No Symptoms Cardiovascular: Reports: No Symptoms GI/Abdominal: Reports: Abdominal Pain, Nausea. Denies: Constipation, Diarrhea, Vomiting : Reports: No Symptoms Musculoskeletal: Reports: No Symptoms Skin: Reports: No Symptoms Neurological: Reports: No Symptoms Psychiatric: Reports: Anxiety ED EXAM, GENERAL - Physical Exam Exam: See Below Exam Limited By: No Limitations General Appearance: Alert, No Apparent Distress, Other (Patient states she is quite anxious at this time and this usually happens when she goes into the doctor's office. Her pulse rate is in the 130s.) Head: Atraumatic, Normocephalic Neck: Normal Inspection, Supple, Non-Tender, Full Range of Motion Respiratory/Chest: No Respiratory Distress, Lungs Clear, Normal Breath Sounds Cardiovascular: Regular Rate, Rhythm, No Edema, No Murmur GI/Abdominal: Normal Bowel Sounds, Soft, Tender (Patient has some mild to moderate right upper quadrant discomfort with palpation to a lesser degree epigastric discomfort no other palpable abdominal discomfort no rigidity rebound or guarding noted) Back Exam: Normal Inspection. No: CVA Tenderness (L), CVA Tenderness (R) Psychiatric: Anxious Skin Exam: Warm, Dry, Intact #1 Interpretation EKG Date: 08/20/21 Rhythm: Other (Sinus tachycardia) Rate (Beats/Min): 141 [place]: Normal P-Wave: Present QRS: Normal ST-T: Other (Mild repolarization abnormality secondary to tachycardia) QT: Normal Comparison: NA - No Prior EKG EKG Interpretation Comments: Abnormal EKG Course - Vital Signs Last Recorded V/S: Last Vital Signs Temp 36.1 C 08/20/21 09:05 Pulse 137 H 08/20/21 09:05 Resp 20 08/20/21 09:05 BP 170/146 H 08/20/21 09:05 Pulse Ox 100 08/20/21 09:05 - Orders/Labs/Meds Orders: Active Orders 24 hr Category Date Time Status Abdomen w Cont [CT] Stat Exams 08/20/21 13:01 Taken BLOOD CULTURE [MREF] Stat Lab 08/20/21 11:50 Received BLOOD CULTURE [MREF] Stat Lab 08/20/21 12:18 Received LORazepam [Ativan] Med 08/20/21 17:35 Active 1 mg IVPUSH Q6H PRN Lactated Ringers [Ringers, Lactated] 1,000 ml Med 08/20/21 17:30 Active IV ASDIRECTED Ondansetron [Zofran] Med 08/20/21 17:32 Active 4 mg IVPUSH Q4H PRN Sodium Chloride 0.9% [Saline Flush] Med 08/20/21 13:36 Active 10 ml FLUSH ONETIME PRN fentaNYL [Sublimaze] Med 08/20/21 17:34 Active 50 mcg IVPUSH Q2H PRN Blood Culture x2 Reflex Set [OM.PC] Stat Oth 08/20/21 11:26 Ordered EKG 12 Lead [EK] Stat Ther 08/20/21 09:23 Ordered Medication Orders Fentanyl (Fentanyl 100 Mcg/2 Ml Sdv) 50 mcg IVPUSH Q2H PRN PRN Reason: Pain Lactated Ringer's (Ringers, Lactated) 1,000 mls @ 300 mls/hr IV ASDIRECTED JOHN Last Admin: 08/21/21 00:05 Dose: 300 mls/hr Documented by: Infusion: 08/20/21 23:55 Dose: 300 mls/hr Documented by: Admin: 08/20/21 20:35 Dose: 300 mls/hr Documented by: JO ANN Infusion: 08/20/21 20:35 Dose: 300 mls/hr Documented by: JO ANN Admin: 08/20/21 17:37 Dose: 300 mls/hr Documented by: JO ANN Lorazepam (Lorazepam 2 Mg/Ml Sdv) 1 mg IVPUSH Q6H PRN PRN Reason: Anxiety Last Admin: 08/20/21 18:56 Dose: 1 mg Documented by: JO ANN Ondansetron HCl (Ondansetron 4 Mg/2 Ml Sdv) 4 mg IVPUSH Q4H PRN PRN Reason: Nausea/Vomiting Sodium Chloride (Sodium Chloride 0.9% 10 Ml Syringe) 10 ml FLUSH ONETIME PRN PRN Reason: IV FLUSH Last Admin: 08/20/21 13:44 Dose: 10 ml Documented by: ANABELL Labs: Laboratory Tests 08/20/21 08/20/21 08/20/21 Range/Units 09:16 09:16 09:16 WBC 11.34 H (3.98-10.04) K/mm3 RBC 5.15 (3.98-5.22) M/mm3 Hgb 15.8 H D (11.2-15.7) gm/dl Hct 46.0 H (34.1-44.9) % MCV 89.3 D (79.4-94.8) fl MCH 30.7 (25.6-32.2) pg MCHC 34.3 (32.2-35.5) g/dl RDW Std Deviation 44.3 (36.4-46.3) fL Plt Count 401 H (182-369) K/mm3 MPV 9.1 L (9.4-12.3) fl Neut % (Auto) 77.4 H (34.0-71.1) % Lymph % (Auto) 13.1 L (19.3-51.7) % [place] % (Auto) 7.0 (4.7-12.5) % Eos % (Auto) 1.9 (0.7-5.8) Baso % (Auto) 0.4 (0.1-1.2) % Neut # (Auto) 8.78 H (1.56-6.13) K/mm3 Lymph # (Auto) 1.48 (1.18-3.74) K/mm3 [place] # (Auto) 0.79 H (0.24-0.36) K/mm3 Eos # (Auto) 0.22 (0.04-0.36) K/mm3 Baso # (Auto) 0.05 (0.01-0.08) K/mm3 Sodium 129 L (136-145) mEq/L Potassium 3.6 (3.5-5.1) mEq/L Chloride 96 L (98-107) mEq/L Carbon Dioxide 21 (21-32) mEq/L Anion Gap 15.6 H (5-15) BUN 9 (7-18) mg/dL Creatinine 1.0 (0.55-1.02) mg/dL Est Cr Clr Drug Dosing 69.98 mL/min Estimated GFR (MDRD) > 60 (>60) mL/min BUN/Creatinine Ratio 9.0 L (14-18) Glucose 140 H (70-99) mg/dL Lactic Acid Calcium 8.7 (8.5-10.1) mg/dL Total Bilirubin 1.5 H (0.2-1.0) mg/dL Direct Bilirubin (0.0-0.2) mg/dl AST TNP ALT TNP Alkaline Phosphatase 204 H (46-116) U/L Total Protein 7.8 (6.4-8.2) g/dl Albumin 3.9 (3.4-5.0) g/dl Globulin 3.9 gm/dL Albumin/Globulin Ratio 1.0 (1-2) Lipase 635 H (73-393) U/L HCG, Qual Negative (NEGATIVE) SARS-CoV-2 RNA (SUJIT) (NEGATIVE) 08/20/21 08/20/21 08/20/21 Range/Units 09:16 09:16 11:50 WBC (3.98-10.04) K/mm3 RBC (3.98-5.22) M/mm3 Hgb (11.2-15.7) gm/dl Hct (34.1-44.9) % MCV (79.4-94.8) fl MCH (25.6-32.2) pg MCHC (32.2-35.5) g/dl RDW Std Deviation (36.4-46.3) fL Plt Count (182-369) K/mm3 MPV (9.4-12.3) fl Neut % (Auto) (34.0-71.1) % Lymph % (Auto) (19.3-51.7) % [place] % (Auto) (4.7-12.5) % Eos % (Auto) (0.7-5.8) Baso % (Auto) (0.1-1.2) % Neut # (Auto) (1.56-6.13) K/mm3 Lymph # (Auto) (1.18-3.74) K/mm3 [place] # (Auto) (0.24-0.36) K/mm3 Eos # (Auto) (0.04-0.36) K/mm3 Baso # (Auto) (0.01-0.08) K/mm3 Sodium (136-145) mEq/L Potassium (3.5-5.1) mEq/L Chloride (98-107) mEq/L Carbon Dioxide (21-32) mEq/L Anion Gap (5-15) BUN (7-18) mg/dL Creatinine (0.55-1.02) mg/dL Est Cr Clr Drug Dosing mL/min Estimated GFR (MDRD) (>60) mL/min BUN/Creatinine Ratio (14-18) Glucose (70-99) mg/dL Lactic Acid TNP Calcium (8.5-10.1) mg/dL Total Bilirubin (0.2-1.0) mg/dL Direct Bilirubin 0.30 H (0.0-0.2) mg/dl AST ALT Alkaline Phosphatase (46-116) U/L Total Protein (6.4-8.2) g/dl Albumin (3.4-5.0) g/dl Globulin gm/dL Albumin/Globulin Ratio (1-2) Lipase (73-393) U/L HCG, Qual (NEGATIVE) SARS-CoV-2 RNA (SUJIT) Negative (NEGATIVE) 08/21/21 08/21/21 08/21/21 Range/Units 05:45 05:45 05:45 WBC 9.17 (3.98-10.04) K/mm3 RBC 4.20 (3.98-5.22) M/mm3 Hgb 12.7 D (11.2-15.7) gm/dl Hct 38.8 (34.1-44.9) % MCV 92.4 D (79.4-94.8) fl MCH 30.2 (25.6-32.2) pg MCHC 32.7 (32.2-35.5) g/dl RDW Std Deviation 46.1 (36.4-46.3) fL Plt Count 305 D (182-369) K/mm3 MPV 8.8 L (9.4-12.3) fl Neut % (Auto) 75.5 H (34.0-71.1) % Lymph % (Auto) 13.4 L (19.3-51.7) % [place] % (Auto) 8.5 (4.7-12.5) % Eos % (Auto) 2.1 (0.7-5.8) Baso % (Auto) 0.3 (0.1-1.2) % Neut # (Auto) 6.92 H (1.56-6.13) K/mm3 Lymph # (Auto) 1.23 (1.18-3.74) K/mm3 [place] # (Auto) 0.78 H (0.24-0.36) K/mm3 Eos # (Auto) 0.19 (0.04-0.36) K/mm3 Baso # (Auto) 0.03 (0.01-0.08) K/mm3 Sodium 138 (136-145) mEq/L Potassium 3.5 (3.5-5.1) mEq/L Chloride 104 (98-107) mEq/L Carbon Dioxide 26 (21-32) mEq/L Anion Gap 11.5 (5-15) BUN 5 L (7-18) mg/dL Creatinine 0.7 (0.55-1.02) mg/dL Est Cr Clr Drug Dosing 99.98 mL/min Estimated GFR (MDRD) > 60 (>60) mL/min BUN/Creatinine Ratio 7.1 L (14-18) Glucose 111 H (70-99) mg/dL Lactic Acid Calcium 7.9 L (8.5-10.1) mg/dL Total Bilirubin 1.2 H (0.2-1.0) mg/dL Direct Bilirubin 0.20 (0.0-0.2) mg/dl AST 42 H ALT 80 H Alkaline Phosphatase 129 H (46-116) U/L Total Protein 6.2 L (6.4-8.2) g/dl Albumin 2.9 L (3.4-5.0) g/dl Globulin 3.3 gm/dL Albumin/Globulin Ratio 0.9 L (1-2) Lipase 495 H (73-393) U/L HCG, Qual (NEGATIVE) SARS-CoV-2 RNA (SUJIT) (NEGATIVE) Meds: Medications Generic Name Dose Route Start Last Admin Trade Name Freq PRN Reason Stop Dose Admin Fentanyl 50 mcg 08/20/21 17:34 Fentanyl 100 Mcg/2 Ml Sdv IVPUSH Q2H PRN Pain Lactated Ringer's 1,000 mls @ 300 mls/hr 08/20/21 17:30 08/21/21 00:05 Ringers, Lactated IV 300 mls/hr ASDIRECTED JOHN Administration Lorazepam 1 mg 08/20/21 17:35 08/20/21 18:56 Lorazepam 2 Mg/Ml Sdv IVPUSH 1 mg Q6H PRN Administration Anxiety Ondansetron HCl 4 mg 08/20/21 17:32 Ondansetron 4 Mg/2 Ml Sdv IVPUSH Q4H PRN Nausea/Vomiting Sodium Chloride 10 ml 08/20/21 13:36 08/20/21 13:44 Sodium Chloride 0.9% 10 Ml Syringe FLUSH 10 ml ONETIME PRN Administration IV FLUSH Discontinued Medications Generic Name Dose Route Start Last Admin Trade Name Freq PRN Reason Stop Dose Admin Al Hydroxide/Mg Hydroxide 30 0 ml 08/20/21 09:31 08/20/21 09:37 ml/ Lidocaine HCl 15 ml PO 08/20/21 09:32 45 ml ONETIME ONE Administration Lactated Ringer's 1,000 mls @ 150 mls/hr 08/20/21 09:45 08/20/21 09:38 Ringers, Lactated IV 150 mls/hr ASDIRECTED JOHN Administration Lactated Ringer's 1,000 mls @ 999 mls/hr 08/20/21 11:27 08/20/21 12:03 Ringers, Lactated IV 08/20/21 12:27 999 mls/hr .BOLUS ONE Administration Sodium Chloride 1,000 mls @ 150 mls/hr 08/20/21 13:15 08/20/21 13:08 Normal Saline IV 150 mls/hr ASDIRECTED JOHN Administration Iopamidol 100 ml 08/20/21 13:36 08/20/21 13:44 Iopamidol 612 Mg/Ml 100 Ml Bottle IVPUSH 08/20/21 13:37 100 ml ONETIME ONE Administration Lidocaine HCl 10 ml 08/20/21 10:01 08/20/21 10:23 Lidocaine 1% 10 Ml Mdv INJECT 08/20/21 10:02 Not Given ONETIME ONE Lorazepam 1 mg 08/20/21 09:32 08/20/21 09:37 Lorazepam 2 Mg/Ml Sdv IVPUSH 08/20/21 09:33 1 mg ONETIME ONE Administration Ondansetron HCl 4 mg 08/20/21 09:31 08/20/21 09:37 Ondansetron 4 Mg/2 Ml Sdv IVPUSH 08/20/21 09:32 4 mg ONETIME ONE Administration - Re-Assessments/Exams Free Text/Narrative Re-Assessment/Exam: 08/20/21 11:17 Laboratory evaluation is concerning white count is over 11,000. Bilirubin is 1.5 we will check a direct transaminases not measured because of lycopene mixed specimen I will try and check a GGT and will check a gallbladder ultrasound lipase is going up. Situation is concerning for choledocholithiasis 08/20/21 13:[address] Lawrence, on-call manager research at [facility]. They have no ERCP coverage however he did recommend checking a CT scan of the upper abdomen as with her high lipemic state her lipase may not be given us the full picture and good imaging of the pancreas is essential. 08/20/21 16:[address] shows pancreatitis no pancreatic ductal dilation gallbladder shows no stones or calcified no ductal dilation. This is acting more like a developing pancreatitis. Nonobstructing stones are seen in both kidneys and she has a fatty liver There is no hospital beds available here and we have a hard time finding anything in the region. Case was discussed again with Dr. Lawrence, manager research at [facility]'s recommendation was to give the patient 300 cc of LR per hour for the next 12 hours recheck labs and if they are assu ring discharge the patient at that time. 08/21/21 07:28 Patient did well through the evening labs thus far look to be improving. Awaiting a lipase. 08/21/21 08:06 Patient did well through the evening without any complications. Labs reviewed this morning show improving lab patterns [id number]. At this point we will go and discharge the patient home. Recommended clear liquid diet for the rest of today. Had a firm discussion about strict alcohol avoidance. Patient has a few anxiety medications, she believes that her Ativan, left at home. I recommended she follow-up with her regular healthcare provider tomorrow Departure - Departure Time of Disposition: 08:07 Disposition: Home, Self-Care 01 Clinical Impression: Pancreatitis, alcoholic, acute - Discharge Information Referrals: PCP,None [Primary Care Provider] - Forms: ED Department Discharge Additional Instructions: Return to the emergency room with any questions problems or worsening symptoms. Strict clear liquid diet for the remainder of today then slowly advance as tolerated. Follow-up with your regular healthcare provider tomorrow or follow-up in the hospital clinic if you do not have a regular healthcare provider. The phone number to the hospital clinic is [phone] - My Orders Last 24 Hours: My Active Orders 08/20/21 09:23 EKG 12 Lead [EK] Stat 08/20/21 11:26 Blood Culture x2 Reflex Set [OM.PC] Stat 08/20/21 11:50 BLOOD CULTURE [MREF] Stat 08/20/21 12:18 BLOOD CULTURE [MREF] Stat 08/20/21 13:01 Abdomen w Cont [CT] Stat 08/20/21 13:36 Sodium Chloride 0.9% [Saline Flush] 10 ml FLUSH ONETIME PRN 08/20/21 17:30 Lactated Ringers [Ringers, Lactated] 1,000 ml IV ASDIRECTED 08/20/21 17:32 Ondansetron [Zofran] 4 mg IVPUSH Q4H PRN 08/20/21 17:34 fentaNYL [Sublimaze] 50 mcg IVPUSH Q2H PRN 08/20/21 17:35 LORazepam [Ativan] 1 mg IVPUSH Q6H PRN - Assessment/Plan Last 24 Hours: My Active Orders 08/20/21 09:23 EKG 12 Lead [EK] Stat 08/20/21 11:26 Blood Culture x2 Reflex Set [OM.PC] Stat 08/20/21 11:50 BLOOD CULTURE [MREF] Stat 08/20/21 12:18 BLOOD CULTURE [MREF] Stat 08/20/21 13:01 Abdomen w Cont [CT] Stat 08/20/21 13:36 Sodium Chloride 0.9% [Saline Flush] 10 ml FLUSH ONETIME PRN 08/20/21 17:30 Lactated Ringers [Ringers, Lactated] 1,000 ml IV ASDIRECTED 08/20/21 17:32 Ondansetron [Zofran] 4 mg IVPUSH Q4H PRN 08/20/21 17:34 fentaNYL [Sublimaze] 50 mcg IVPUSH Q2H PRN 08/20/21 17:35 LORazepam [Ativan] 1 mg IVPUSH Q6H PRN
[2021-08-20] MEDS ORDERED: Alum Hydrox/Mag Hydrox/Simeth 30 ML, Lidocaine 2% 15 ML PO ONE ×2 (09:31)
[2021-08-20] MEDS ORDERED: Ondansetron 4 MG/2 ML SDV IVPUSH ONE (09:31)
[2021-08-20] MEDS ORDERED: LORazepam 2 MG/ML SDV IVPUSH ONE (09:32)
[2021-08-20] MEDS ORDERED: Lactated Ringers 1,000 ML IV SCH (09:45)
[2021-08-20] MEDS ORDERED: Lidocaine 1% 10 ML MDV INJECT ONE (10:01)
[2021-08-20] MEDS ORDERED: Lactated Ringers 1,000 ML IV ONE (11:27)
--- NOTE | 2021-08-20 12:29 | US ---
Limited abdominal ultrasound: Multiple real-time images of the upper right abdomen were obtained. Comparison: No prior abdominal imaging is available. Liver is slightly echogenic. No focal abnormality is appreciated. Right kidney shows no hydronephrosis or mass. Right kidney has a length of 12.0 cm. Gallbladder contains no shadowing gallstones. No gallbladder wall thickening or biliary duct dilatation is seen. Pancreas appears within normal limits. Main portal vein shows normal hepatopedal flow. Impression: 1. Fatty infiltration within the liver. 2. Other portions of the right upper quadrant abdominal ultrasound appear within normal limits. Diagnostic code #2
[2021-08-20] MEDS ORDERED: Sodium Chloride 0.9% 1,000 ML IV SCH (13:15)
[2021-08-20] MEDS ORDERED: Sodium Chloride 0.9% 10 ML Syringe FLUSH PRN (13:36)
[2021-08-20] MEDS ORDERED: Iopamidol 612 MG/ML 100 ML Bottle IVPUSH ONE (13:36)
[2021-08-20] MEDS ORDERED: Ondansetron 4 MG/2 ML SDV IVPUSH PRN (17:32)
[2021-08-20] MEDS ORDERED: fentaNYL 100 MCG/2 ML SDV IVPUSH PRN (17:34)
[2021-08-20] MEDS ORDERED: LORazepam 2 MG/ML SDV IVPUSH PRN (17:35)
[2021-08-20] MEDS: Lactated Ringers 1,000 ML IV SCH ×2 (17:37→20:35)
[2021-08-21] MEDS: Lactated Ringers 1,000 ML IV SCH (00:05)
--- NOTE | 2021-08-21 15:14 | CT ---
CT abdomen Technique: Multiple axial sections were obtained from above the dome of the diaphragm inferiorly to the iliac crest. Intravenous contrast was utilized. No oral contrast has been given. Reconstructed coronal and sagittal images were obtained. Comparison: Prior abdominal ultrasound performed earlier on the same day (11:55 AM). Findings: Visualized lung bases show nothing acute. Fatty infiltration is noted within the liver. Small low density lesion is seen within the right lobe of the liver measuring 8 mm. This most likely represents a small cyst. Spleen size is normal. Adrenal glands show no nodule. Gallbladder contains no calcified gallstones. Kidneys show symmetric contrast enhancement. Small scattered nonobstructing calculi are seen within both kidneys. Largest nonobstructing calculus is in the right kidney and measures 7 mm. Circumaortic left renal vein is noted. No dilatation is seen of the renal vein. Pancreas shows inflammatory type change around the distal body and tail. This is compatible with pancreatitis. Body and neck of the pancreas appear normal. Abdominal aorta shows no aneurysm. No retroperitoneal adenopathy or mesenteric abnormalities are seen. Minimal fat-containing umbilical hernia is noted. No other inflammatory change is seen. Bone window settings were reviewed which show no acute osseous abnormality. Impression: 1. Mild pancreatitis around the body and tail. 2. Fatty infiltration within the liver. Small cyst within the anterior right lobe. Nonobstructing calculi are seen within both kidneys. Diagnostic code #3 I agree with preliminary report from [facility], finalized on 08/20/21, 3:58 PM CDT, code 1
== END 2021-08-21 08:34 | disposition home or self-care (01) ==
LOC: JD.ED 08:57
DX: K85.20 Alcohol induced acute pancreatitis without necrosis or infection (principal); R00.0 Tachycardia, unspecified; Z91.040 Latex allergy status; Z20.822 Contact with and (suspected) exposure to COVID-19
CPT/HCPCS: 36415; 74160; 76705; 80053; 82248; 83690; 84703; 85025; 87040; 87635; 87804; 93005; 96374; 96375; 96376; 99284; A9270; J2060; J2405; J7030; J7120; Q9967; U0002